=== PATIENT | male | born 1985 | race African-American/Black ===

== ENCOUNTER 2021-03-19 15:28 | Emergency (ER) | payer SELFPAY ==
[~2021-03-19] VITALS: Ht 175.3 cm; Wt 72.2 kg
[2021-03-19 17:04] LABS: AMPHETAMINES SCREEN,URINE NEGATIVE (NEGATIVE); BENZODIAZEPINES SCREEN,URINE POSITIVE (NEGATIVE); PHENCYCLIDINE SCREEN,URINE NEGATIVE (NEGATIVE)
[2021-03-19] MEDS ORDERED: LORAZEPAM INJ 2 MG/ML VIAL IV ONE (17:15)
[2021-03-19] MEDS ORDERED: LORAZEPAM INJ 2 MG/ML VIAL ONE (17:22)
[2021-03-19] MEDS ORDERED: SODIUM CHLORIDE 0.9% 1000ML 1,000 ML IV SCH ×2 (17:45→18:30)
[2021-03-19] MEDS ORDERED: POTASSIUM CHLORIDE 20 MEQ TAB CR PO STA (18:17)
[2021-03-19] MEDS ORDERED: POTASSIUM CHLORIDE 20MEQ/100ML 100 ML IV ONE (18:30)
[2021-03-19] MEDS ORDERED: POTASSIUM CHLORIDE 20 MEQ TAB CR PO ONE (19:07)
[2021-03-19] MEDS ORDERED: POTASSIUM CHLORIDE 20MEQ/100ML 100 ML ONE (19:07)
[2021-03-19] MEDS ORDERED: SODIUM CHLORIDE 0.9% 1000ML 1,000 ML ONE (19:07)
[2021-03-19] MEDS ORDERED: K DUR10 MEQ PO (23:56)
[2021-03-19] MEDS ORDERED: ATIVAN1 MG PO (23:58)
== END 2021-03-20 00:12 | disposition home or self-care (01) ==
LOC: FSED 16:10
DX: M62.82 Rhabdomyolysis (principal); E87.6 Hypokalemia; R11.2 Nausea with vomiting, unspecified; F13.139 Sedative, hypnotic or anxiolytic abuse with withdrawal, unspecified; R56.9 Unspecified convulsions
CPT/HCPCS: 70450; 71046; 80048; 80076; 80307; 81003; 93005; 99283; J2060; J3480; J7030; U0002

== ENCOUNTER 2021-09-02 09:28 | Emergency (ER) | payer OTHER ==
[~2021-09-02] VITALS: Ht 175.3 cm; Wt 74.9 kg
[~2021-09-02 09:28] MED LIST: ATIVAN1 MG PO; K DUR10 MEQ PO
[2021-09-02] MEDS: SODIUM CHLORIDE 0.9% 1000ML 1,000 ML IV SCH ×2 (12:00→12:25)
[2021-09-02] MEDS ORDERED: SODIUM CHLORIDE 0.9% 1000ML 1,000 ML ONE (12:49)
[2021-09-02] MEDS ORDERED: SODIUM CHLORIDE 0.9% 1000ML 1,000 ML IV SCH (13:00)
[2021-09-02] MEDS ORDERED: LEVETIRACETAM500 MG PO (13:08)
[2021-09-02] MEDS ORDERED: LEVETIRACETAM 500 MG TAB PO ONE (13:20)
[2021-09-02] MEDS ORDERED: LEVETIRACETAM 500 MG TAB ONE (13:38)
== END 2021-09-02 14:09 | disposition home or self-care (01) ==
LOC: FSED 10:05
DX: S01.81XA Laceration without foreign body of other part of head, initial encounter (principal); S40.011A Contusion of right shoulder, initial encounter; W11.XXXA Fall on and from ladder, initial encounter; Y99.0 Civilian activity done for income or pay; G40.909 Epilepsy, unspecified, not intractable, without status epilepticus; I10 Essential (primary) hypertension; R94.31 Abnormal electrocardiogram [ECG] [EKG]; F17.210 Nicotine dependence, cigarettes, uncomplicated
CPT/HCPCS: 70450; 80048; 80076; 80307; 81003; 85025; 99284; J7030; 93005

== ENCOUNTER 2023-07-13 10:07 | Emergency (ER) | payer SELFPAY ==
[~2023-07-13] VITALS: Ht 175.3 cm; Wt 79.0 kg
[~2023-07-13 10:07] MED LIST changes: +LEVETIRACETAM500 MG PO
[2023-07-13] MEDS ORDERED: PREDNISONE 20 MG TAB PO ONE (10:30)
[2023-07-13] MEDS ORDERED: ALBUTEROL/IPRATROPIUM 3 ML NEB NEB ONE ×3 (10:30)
[2023-07-13] MEDS ORDERED: PREDNISONE 20 MG TAB ONE (10:37)
[2023-07-13] MEDS ORDERED: ALBUTEROL/IPRATROPIUM 3 ML NEB ONE (10:37)
[2023-07-13 10:57] VITALS: PULSE 97; RESP 18
[2023-07-13] MEDS ORDERED: PROAIR DIGIHAL90 MCG INH (11:07)
[2023-07-13] MEDS ORDERED: MUCINEX DM ER1 EAC1 PO (11:07)
[2023-07-13] MEDS ORDERED: AZITHROMYCIN250 MG PO (11:07)
[2023-07-13] MEDS ORDERED: BENZONATATE100 MG PO (11:07)
[2023-07-13] MEDS ORDERED: CLARITIN10 MG PO (11:07)
[2023-07-13] MEDS ORDERED: FLONASE ALLERG9.9 ML INH (11:07)
[2023-07-13] MEDS ORDERED: PREDNISONE20 MG PO (11:35)
[2023-07-13] MEDS ORDERED: ALBUTEROL2.5 MG/3 M INH (11:39)
[2023-07-13] MEDS ORDERED: COMPRESSOR NEB1 EACH (11:39)
[2023-07-13 11:56] VITALS: O2SAT 94
== END 2023-07-13 11:56 | disposition home or self-care (01) ==
LOC: FSED 10:25
DX: R50.9 Fever, unspecified (principal); J20.9 Acute bronchitis, unspecified; J02.9 Acute pharyngitis, unspecified; R06.2 Wheezing; I10 Essential (primary) hypertension; G40.909 Epilepsy, unspecified, not intractable, without status epilepticus; Z20.822 Contact with and (suspected) exposure to COVID-19; F17.210 Nicotine dependence, cigarettes, uncomplicated
CPT/HCPCS: 0223U; 71046; 83518; 87400; 99283; J7512

== ENCOUNTER 2024-03-05 20:59 | Emergency (ER) | payer OTHER ==
[~2024-03-05] VITALS: Ht 175.3 cm; Wt 78.9 kg
[~2024-03-05 20:59] MED LIST changes: +ALBUTEROL2.5 MG/3 M INH; +AZITHROMYCIN250 MG PO; +BENZONATATE100 MG PO; +CLARITIN10 MG PO; +COMPRESSOR NEB1 EACH; +FLONASE ALLERG9.9 ML INH; +MUCINEX DM ER1 EAC1 PO; +PREDNISONE20 MG PO; +PROAIR DIGIHAL90 MCG INH
[2024-03-05 21:30] VITALS: PULSE 74; RESP 18; TEMP 98
[2024-03-05] MEDS ORDERED: LIDOCAINE 1% W/EPINEPHRINE 20 ML VIAL ONE (21:31)
[2024-03-05] MEDS ORDERED: CEPHALEXIN500 MG PO (21:41)
[2024-03-05] MEDS ORDERED: TETANUS/DIPHTHERIA TOX ADULT 0.5 ML SYR ONE (21:49)
[2024-03-05] MEDS ORDERED: AMLODIPINE BESYL5 MG PO (21:55)
[2024-03-05] MEDS: LIDOCAINE 1% W/EPINEPHRINE 20 ML VIAL INJ ONE (22:05)
[2024-03-05] MEDS: TETANUS/DIPHTHERIA TOX ADULT 0.5 ML SYR IM ONE (22:06)
[2024-03-06 01:31] VITALS: BP 166/65; PULSE 71; RESP 18; TEMP 98.3; O2SAT 100
== END 2024-03-05 21:58 | disposition home or self-care (01) ==
LOC: FSED 21:02
DX: S81.812A Laceration without foreign body, left lower leg, initial encounter (principal); W20.8XXA Other cause of strike by thrown, projected or falling object, initial encounter; Y93.H2 Activity, gardening and landscaping; Y92.89 Other specified places as the place of occurrence of the external cause; I10 Essential (primary) hypertension; N28.9 Disorder of kidney and ureter, unspecified; G40.909 Epilepsy, unspecified, not intractable, without status epilepticus
CPT/HCPCS: 90471; 90714; 99283

== ENCOUNTER 2024-03-20 11:55 | Emergency (ER) | payer OTHER ==
[~2024-03-20] VITALS: Ht 175.3 cm; Wt 82.6 kg
[~2024-03-20 11:55] MED LIST changes: +AMLODIPINE BESYL5 MG PO; +CEPHALEXIN500 MG PO
[2024-03-20 12:10] VITALS: PULSE 68; RESP 18; TEMP 98.6; O2SAT 97
[2024-03-20] MEDS: BACITRACIN ZINC 0.9GM TP ONE (12:21)
== END 2024-03-20 12:23 | disposition home or self-care (01) ==
LOC: FSED 12:01
DX: Z48.02 Encounter for removal of sutures (principal)
CPT/HCPCS: 99282; S0630